=== PATIENT | male | born 1950 | race Caucasian/White ===

== ENCOUNTER 2016-11-29 11:40 | Emergency (ER) | payer MEDICARE, OTHER ==
[~2016-11-29] VITALS: Ht 182.9 cm; Wt 110.0 kg
[~2016-11-29 11:40] MED LIST: CARD240C6 PO; COUM5TAB PO; RAMI10CA PO
[2016-11-29 11:48] VITALS: BP 94/65; PULSE 88; RESP 16; TEMP 98.1; O2SAT 97
[2016-11-29] MEDS ORDERED: WARF-23 PO (12:13)
[2016-11-29] MEDS ORDERED: MORPHINE SULFATE 4 MG/ML INJ IV PUSH ONE (12:15)
[2016-11-29] MEDS ORDERED: ONDANSETRON HCL 4 MG/2 ML VIAL IV PUSH ONE (12:15)
--- NOTE | 2016-11-29 12:31 | PD ---
HPI Chief Complaint: Laceration/Skin Injury Time Seen by Provider: 11:59 Travel History International Travel<30 days: No Contact w/Intl Traveler<30days: No Traveled to known affect area: No History of Present Illness HPI Mr. Galdamez is a 66-year-old gentleman with a history of atrial fibrillation, on Coumadin, who presents today with complaints of left posterior hand lacerations. Patient was using a saw when he pulled down over his second third and fourth fingers. He presents today with bleeding and oozing from the fingers. He is on Coumadin for his atrial fibrillation. He is right handed. He reports pain down his fingers. He reports some tingling to the distal fingers of the second and third finger. There are no other injuries at the time my examination. Unsure of last tetanus immunization. PFSH Past Medical History Hx Anticoagulant Therapy: Yes (WARFARIN) Blood Disorders: No Heart Rhythm Problems: Yes (A FIB) Cancer: No Cardiovascular Problems: Yes (AFIB) Endocrine: No Gastrointestinal Disorders: No Genitourinary: No Hypertension: Yes Immune Disorder: No Implanted Vascular Access Dvce: No Musculoskeletal: Yes Neurologic: No Psychiatric: No Reproductive: No Respiratory: Yes Sleep Apnea: Yes (uses c-pap) Tetanus Vaccination: Unknown Past Surgical History Other Surgery: Yes Social History Alcohol Use: Yes (occ) Tobacco Use: No (quit many years ago) Substance Use: No Allergies-Medications (Allergen,Severity, Reaction): Coded Allergies: Canned Fish (Verified Allergy, Severe, PT REPORTS ANAPHYLAXIS WITH "ALL FISH PRODUCTS", 11/29/16) 01/06/09: PT REPORTS ANAPHYLAXIS WITH ALL FISH PRODUCTS Uncoded Allergies: ALL FISH PRODUCTS (Allergy, Severe, ANAPHYLAXSIS, 01/06/09) Reported Meds & Prescriptions Reported Meds & Active Scripts Active Keflex (Cephalexin) 500 Mg Cap 500 Mg PO Q6H Reported Warfarin 5 Mg Tab 5 Mg PO DAILY Review of Systems Respiratory: No: Cough, Wheezing Gastrointestinal: Positive: Nausea, Vomiting Musculoskeletal: Positive: Limited ROM (secondary to pain), Pain (left hand dorsum second, third, fourth finger.) Neurologic: No: Weakness, Dizziness, Change in Mentation Physical Exam Narrative GENERAL: Well-nourished, well-developed patient. SKIN: Focused skin assessment warm/dry. HEAD: Normocephalic/atraumatic. CARDIOVASCULAR: Irregularly irregular. Rate control. RESPIRATORY: Breath sounds equal bilaterally. No accessory muscle use. GASTROINTESTINAL: Abdomen soft, non-tender, nondistended. MUSCULOSKELETAL: On examination of the patient's left hand, he has lacerations to his knuckles at the PIP distribution of the second, third, fourth finger. The second digit is concerning for intra-articular distribution. Flexion and extension limited secondary to pain. NEUROLOGICAL: Awake and alert. Cranial nerves II through XII intact. Motor within normal limits. Five out of 5 muscle strength in all muscle groups. Normal speech. Data Data Last Documented VS Vital Signs Date Time Temp Pulse Resp B/P Pulse Ox O2 Delivery O2 Flow Rate FiO2 11/29/16 13:21 16 11/29/16 13:06 90 103/55 95 Room Air 11/29/16 11:48 98.1 Orders Hand, Complete ([id number]) (11/29/16 12:09) Prothrombin Time / Inr (Pt) (11/29/16 12:11) Act Partial Throm Time (Ptt) (11/29/16 12:11) Morphine Inj (Morphine Inj) (11/29/16 12:15) Ondansetron Inj (Zofran Inj) (11/29/16 12:15) Tetanus/Diphtheria Tox Adult (Tetanus/Di (11/29/16 12:45) Labs Laboratory Tests Test 11/29/16 12:45 Prothrombin Time 12.2 SEC Prothromb Time International 1.1 RATIO Ratio Activated Partial 24.2 SEC Thromboplast Time MDM Medical Decision Making Medical Screen Exam Complete: Yes Emergency Medical Condition: Yes Differential Diagnosis Laceration versus tendon laceration versus intra-articular involvement Narrative Course This is a 66-year-old male presents after he saw injury to the left dorsum of his hand. The patient has no evidence of acute bony injury. Does not appear to go through the joint. On reexamination after numbing the finger he had full extension and flexion of his third fourth and second digit. He'll be discharged told to keep it clean and dry. He's been started on Keflex 500 mg 4 times a day 10 days. He'll suture removal in 7 days. He is instructed to return if feeling worse. Diagnosis Primary Impression: laceration to the dorsum of the left third fourth and fifth finger. Additional Instructions: Suture removal in 7 days. Med/Other Pt SpecificInfo: Prescription(s) given Scripts Cephalexin (Keflex)500 Mg Uoy128 Mg PO Q6H #40 CAP Ref 0 Prov:Alec Tadeo MD 11/29/16 Disposition: 01 DISCHARGE HOME Condition: Stable Alec Tadeo MD Nov 29, 2016 12:30
[2016-11-29] MEDS ORDERED: TETANUS/DIPHTHERIA TOXOID ADULT 0.5 ML VIAL IM ONE (12:45)
[2016-11-29 13:06] VITALS: BP 103/55; PULSE 90; RESP 18; O2SAT 95
[2016-11-29 13:07] LABS: APTT (PATIENT) 24.2 SEC (24.3-30.1); INTERNATIONAL NORMALIZED RATIO 1.1 RATIO; PROTHROMBIN TIME - PATIENT 12.2 SEC (9.8-11.6)
[2016-11-29 13:21] VITALS: RESP 16
--- NOTE | 2016-11-29 13:46 | RADRPT ---
EXAM DATE/TIME: 11/29/2016 12:55 [facility] COMPARISON: No previous studies available for comparison. INDICATIONS : Laceration to left 2nd, 3rd, and 4th digits from saw. MEDICAL HISTORY : None. SURGICAL HISTORY : None. ENCOUNTER: Initial ACUITY: 1 day PAIN SCORE: 7/10 LOCATION: Left hand. FINDINGS: 3 views of the left hand demonstrate no fracture or dislocation. Mineralization is decreased. No soft tissue abnormality or radiopaque foreign body is visualized. CONCLUSION: No radiopaque foreign body is identified. No fracture is present. Jose Hollis MD on November 29, 2016 at 13:44 Board Certified Radiologist. This report was verified electronically.
--- NOTE | 2016-11-29 14:09 | PD ---
Physical Exam Time Seen by Provider: 13:30 Narrative I was asked by Dr. Tadeo to repair finger lacerations to the patient's left hand. Patient sustained 3 lacerations to the dorsal aspect of the second, third , fourth digit caused by circular saw. Patient reports normal sensation in the digit. He is able to flex and extend the affected digits against resistance. Wrist cap refill. LACERATION LOCATION: #1 Second digit, #2 third digit, #3 fourth digit dorsal aspect. LENGTH: [#1- 3cm, #2- 2cm, #3-1 cm ] NUMBER OF STITCHES/ZAYNAB: [18] REPAIR: The area of the laceration was prepped with Betadine and sterilely draped. Digital block performed with 1% lidocaine. The wound was copiously irrigated and explored without evidence of foreign body, tendon injury or neurovascular injury. The wound was closed using [4-0 Ethilon]. This was a [single] layer repair. A sterile dressing was applied. The patient was advised to keep the dressing clean and dry. Patient tolerated the procedure well. Finger splint applied to left index finger. Data Data Last Documented VS Vital Signs Date Time Temp Pulse Resp B/P Pulse Ox O2 Delivery O2 Flow Rate FiO2 11/29/16 13:21 16 11/29/16 13:06 90 103/55 95 Room Air 11/29/16 11:48 98.1 Orders Hand, Complete ([id number]) (11/29/16 12:09) Prothrombin Time / Inr (Pt) (11/29/16 12:11) Act Partial Throm Time (Ptt) (11/29/16 12:11) Morphine Inj (Morphine Inj) (11/29/16 12:15) Ondansetron Inj (Zofran Inj) (11/29/16 12:15) Tetanus/Diphtheria Tox Adult (Tetanus/Di (11/29/16 12:45) Labs Laboratory Tests Test 11/29/16 12:45 Prothrombin Time 12.2 SEC Prothromb Time International 1.1 RATIO Ratio Activated Partial 24.2 SEC Thromboplast Time [facility] [place] Supervised Visit with FLAVIA: Yes Denise Connelly Nov 29, 2016 14:09
[2016-11-29] MEDS ORDERED: CEPH-460 PO (14:27)
== END 2016-11-29 14:39 | disposition home or self-care (01) ==
LOC: PHED 11:40
DX: S61.211A Laceration without foreign body of left index finger without damage to nail, initial encounter (principal); S61.213A Laceration without foreign body of left middle finger without damage to nail, initial encounter; S61.215A Laceration without foreign body of left ring finger without damage to nail, initial encounter; I48.91 Unspecified atrial fibrillation; W27.0XXA Contact with workbench tool, initial encounter; Z79.01 Long term (current) use of anticoagulants; Z23 Encounter for immunization
CPT/HCPCS: 12002; 73130; 85610; 85730; 90471; 90714; 96374; 96375; 99284; J2270; J2405